=== PATIENT | female | born 1970 ===

== ENCOUNTER 2023-08-21 08:40 | Outpatient (CLI) | payer OTHER | END 2023-08-21 08:51 | disposition home or self-care (01) | LOC: SONOGRAMA 08:40 | PROVIDERS: ATTEND Obstetrics & Gynecology Gynecology | DX: N84.0 Polyp of corpus uteri (principal); N60.11 Diffuse cystic mastopathy of right breast; N60.12 Diffuse cystic mastopathy of left breast; N93.0 Postcoital and contact bleeding; E66.9 Obesity, unspecified; Z80.0 Family history of malignant neoplasm of digestive organs; N92.0 Excessive and frequent menstruation with regular cycle; D25.1 Intramural leiomyoma of uterus; A60.04 Herpesviral vulvovaginitis ==